=== PATIENT | female | born 1950 | race Caucasian/White ===

== ENCOUNTER 2022-09-24 15:19 | Outpatient (CLI) | payer MEDICARE | END 2022-09-24 15:20 | disposition home or self-care (01) | LOC: CSHULT 15:19 | PROVIDERS: ATTEND Specialist | DX: E04.1 Nontoxic single thyroid nodule (principal); E07.9 Disorder of thyroid, unspecified; E04.2 Nontoxic multinodular goiter | CPT/HCPCS: 76536 ==